=== PATIENT | female | born 1975 | race Caucasian/White ===

== ENCOUNTER 2017-03-11 19:00 | Inpatient (IN) | payer OTHER ==
--- NOTE | ~2017-03-11 | PA ---
Unit #: [id number] #: [id number] Patient: TREE LAINEZ [id number] [facility] [address] [place] [address] [id number] I MR#: [id number] NAME: TREE LAINEZ. ROOM: P178 Age: 41 Sex: F Admission Date: 03/11/2017 : 1975 Date of Assessment: Attending Physician: Sonia Robert M.D. Admitting Physician: Sonia Robert M.D. Primary Care Physician: Primary Care Physician No PSYCHIATRIC ASSESSMENT IDENTIFYING DATA Ms. Lainez is a 41-year-old white female, who is a resident of [place], [place], and was self-referred to the hospital on voluntary basis. CHIEF COMPLAINT "I've been abusing a gram of IV heroin a day for the past year." HISTORY OF PRESENT ILLNESS Ms. Lainez is a 41-year-old white female, who was brought to the hospital stating that she has been abusing heroin IV 1 g a day for the past year and reports the last use of heroin was this morning. Reports withdrawal symptoms as well as increasing depression, anxiety, feelings of hopelessness and helplessness, psychomotor retardation, inability to function and take care of herself and has had significant consequences because of her addiction and reports suicidal ideation with plan to cut her wrist or crash her car, was seen to be a significant threat to herself as she reports that she has attempted suicide last year by cutting her wrist as well and has history of previous overdose suicide attempt in 2012 and as such, recommendation for inpatient level of care for safety and stabilization was made and the patient was transferred to us. SUBSTANCE ABUSE HISTORY The patient has extensive history of substance abuse and dependence as she has experimented and abused alcohol, cannabis, cocaine, acid, opioids, and amphetamines and currently opioids appear to be her drug of choice along with methamphetamine as she reports that she has been using a gram of IV heroin a day every day and has also been using IV methamphetamine for every few months and her last use of IV heroin was on the day of coming to the hospital, and last use of methamphetamine intravenous was yesterday though she has not used any drugs for a long period of time. PAST PSYCHIATRIC HISTORY The patient reports history of inpatient chemical dependency treatment at [facility] in 2016, and currently, she is not active in any treatment program, is not seeing a psychiatrist, and is not taking psychotropic medications. PAST MEDICAL HISTORY Hepatitis C, hypertension. ALLERGIES No known medication allergies. Unit #: [id number] #: [id number] Patient: TREE LAINEZ PERSONAL AND SOCIAL HISTORY A 41-year-old white female, who reports that she is single, unemployed, and homeless and has poor social support system. MENTAL STATUS EXAMINATION Middle-aged white female, who was casually dressed with fair personal hygiene, appears to be in no acute distress or discomfort. She was awake and alert on interaction with intact orientation. Her mood was anxious and depressed with a congruent affect. Her speech was slow and restricted in content. Her thought processes were disorganized with some looseness of associations and suicidal ideations. Her insight and judgment remain significantly impaired. DIAGNOSTIC IMPRESSION Psychiatric: Major depressive disorder, recurrent, moderate, without psychotic features; opioid dependence, moderate and acute withdrawals; methamphetamine dependence, moderate. Medical: Hepatitis C and hypertension. Stressors: Moderate psychosocial stressors. TREATMENT PLAN 1. The patient has presented with history of mood disorder and substance abuse and has been decompensating and will need inpatient hospitalization for detoxification, safety, and stabilization. We will start her back on her home medications, and detox protocol will be initiated as well. 2. Supportive therapy was provided to the patient. 3. Safe, structured, and nourishing environment will be provided. ESTIMATED LENGTH OF STAY 5 to 7 days. ABILITY TO HELP SELF Limited. WILLINGNESS TO HELP SELF The patient appears to be willing to help self. STRENGTHS 1. Communicative. 2. Cooperative. PROBLEMS 1. Chronic dysphoric symptoms. 2. Chronic chemical dependency. 3. Poor social support system. DISCHARGE CRITERIA This will be contingent upon the patient's ability to go through detox without having any significant withdrawal symptoms as well as her ability to stay safe to herself, particularly after discharge from the hospital. Dictated by... Yue Umanzor/mundo Unit #: [id number] #: [id number] Patient: TREE LAINEZ TD: 03/12/2017 07:39 JOB #: [id number] PSYCHIATRIC ASSESSMENT Page 1 of 1 X Sonia Robert MD PSYCHIATRIC ASSESSMENT
--- NOTE | ~2017-03-11 | PN ---
Unit #: [id number] #: [id number] Patient: TREE LAINEZ [id number] [facility] [address] [place] [address] [id number] MR#: [id number] NAME: TREE LAINEZ. ROOM: P1 Age: 41 Sex: F Admission Date: 03/11/2017 : 1975 Attending Physician: Sonia Robert M.D. Admitting Physician: Sonia Robert M.D. Primary Care Physician: Primary Care Physician Kenna RUSSO PROGRESS NOTES DATE 03/13/2017 DISCUSSION Ms. Lainez is a 41-year-old white female with substance abuse and mood disorder who was seen today and chart was reviewed and case was discussed with the staff. She has been anxious, withdrawn and rather seclusive to herself. Meanwhile, she has been cooperative with treatment recommendations and has been taking medications and tolerating them fairly well with no reported side effects. MENTAL STATUS EXAMINATION Middle-aged white female who was casually dressed with fair personal hygiene and appears to be in no acute distress or discomfort. She was awake and alert on interaction with intact orientation. Her mood was anxious with congruent affect. She denies any suicidal or homicidal ideation. Her insight and judgement remains slightly impaired. TREATMENT PLAN 1. Will continue on current medications and treatment protocol. Will monitor response to the medications and make further adjustments as needed. 2. Will continue to follow up. Dictated by... Sonia Robert M.D. IAA/jaz TD: 03/13/2017 20:41 JOB #: [id number] Unit #: [id number] #: [id number] Patient: TREE LAINEZ ALFONZOMARJORIE PROGRESS NOTES Page 1 of 1 X Sonia Robert MD PROGRESS NOTE
--- NOTE | ~2017-03-11 | PN ---
Unit #: [id number] #: [id number] Patient: TREE LAINEZ [id number] [facility] [address] [place] [address] [id number] MR#: [id number] NAME: TREE LAINEZ. ROOM: P173 Age: 41 Sex: F Admission Date: 03/11/2017 : 1975 Attending Physician: Sonia Robert M.D. Admitting Physician: Sonia Robert M.D. Primary Care Physician: Primary Care Physician Kenna RUSSO PROGRESS NOTES DATE March 15, 2017 DISCUSSION Ms. Lainez is a 41-year-old white female, who was seen today and chart was reviewed and the case was discussed with the staff. She has been anxious, withdrawn, and rather seclusive to herself. Meanwhile, she has been cooperative with the treatment recommendations and she has been taking the medications and tolerating them fairly well with no reported side effects. MENTAL STATUS EXAMINATION Young white female, who was casually dressed with fair personal hygiene and appears to be in no acute distress or discomfort. The patient was awake and alert with intact orientation. Her mood was anxious with a congruent affect. The patient denies any suicidal or homicidal ideations. Her insight and judgment remain slightly impaired. TREATMENT PLAN 1. We will continue her on her current treatment protocol, and will monitor her response to the medications, and make further adjustments as needed. 2. We will continue to followup. Dictated by... Yue Umanzor/jocelyne TD: 03/16/2017 06:56 JOB #: [id number] Unit #: [id number] #: [id number] Patient: TREE LAINEZMARJORIE PROGRESS NOTES Page 1 of 1 X Sonia Robert MD PROGRESS NOTE
--- NOTE | ~2017-03-11 | PN ---
Unit #: [id number] #: [id number] Patient: TREE VALDEZ [id number] [facility] [address] [place] [address] [id number] I MR#: [id number] NAME: TREE VALDEZ. ROOM: P173 Age: 41 Sex: F Admission Date: 03/11/2017 : 1975 Attending Physician: Sonia Robert M.D. Admitting Physician: Sonia Robert M.D. Primary Care Physician: Primary Care Physician Kenna ARTEAGA NOTES DATE OF SERVICE: 03/16/2017 SUBJECTIVE Ms. Briscoe is a 41-year-old white female who was seen today and chart was reviewed, and case was discussed with the staff. She has been doing fairly well and appears to be coming out of the detox without any complications. She has been having depression and anxiety. She has been taking the medications and tolerating them fairly well with no reported side effects. MENTAL STATUS EXAMINATION Young white female who was casually dressed with fair personal hygiene, appears to be in no acute distress or discomfort. She was awake and alert on interaction with intact orientation. Her mood was anxious with a congruent affect. She denies any suicidal or homicidal ideation. Her insight and judgment remain slightly impaired. TREATMENT PLAN 1. We will continue on her current medications and treatment protocol. We will monitor her response to the medications and make further adjustments as needed. 2. We will continue to follow up. Dictated by... Yue Umanzor/mundo TD: 03/17/2017 23:26 JOB #: [id number] RAFAELA PROGRESS NOTES Page 1 of 1 X Sonia Robert MD PROGRESS NOTE
--- NOTE | ~2017-03-11 | PN ---
Unit #: [id number] #: [id number] Patient: TREE LAINEZ [id number] [facility] [address] [place] [address] [id number] I MR#: [id number] NAME: TREE LAINEZ. ROOM: P173 Age: 41 Sex: F Admission Date: 03/11/2017 : 1975 Attending Physician: Sonia Robert M.D. Admitting Physician: Sonia Robert M.D. Primary Care Physician: Primary Care Physician Kenna ARTEAGA NOTES DATE OF SERVICE: 03/14/2017 SUBJECTIVE Ms. Lainez is a 41-year-old white female who was seen today and chart was reviewed, and case was discussed with the staff. She has been anxious, withdrawn, and reports to have some detox symptoms. Meanwhile, she has been compliant with treatment recommendations and has been taking medications and tolerating them fairly well with no reported side effects. MENTAL STATUS EXAMINATION Young white female who was casually dressed with a fair personal hygiene, appears to be in no acute distress or discomfort. She was awake and alert with intact orientation. Her mood was anxious with a congruent affect. She denies any suicidal or homicidal ideation. Her insight and judgment remain slightly impaired. TREATMENT PLAN 1. We will continue her on her current medications and treatment protocol. We will monitor response and make further adjustments as needed. 2. We will continue to follow up. Dictated by... Yue Umanzor/mundo TD: 03/16/2017 00:02 JOB #: [id number] RAFAELA ARTEAGA NOTES Page 1 of 1 X Sonia Robert MD PROGRESS NOTE
--- NOTE | ~2017-03-11 | HP ---
Unit #: [id number] #: [id number] Patient: [facility]AT[facility] VALDEZ [id number] [facility] [address] [place] [address] [id number] I MR#: [id number] NAME: KATIE VALDEZ. ROOM: [facility] Age: 41 Sex: F Admission Date: 03/11/2017 : 1975 Attending Physician: Sonia Robert M.D. Admitting Physician: Sonia Robert M.D. Primary Care Physician: Primary Care Physician No HISTORY AND PHYSICAL HISTORY OF PRESENT ILLNESS Katie is a 41 year old admitted to [facility] because of her continued drug use. She shoots heroin. PAST MEDICAL HISTORY 1. Long history of opioid abuse to include IV heroin. 2. Hepatitis C. PAST SURGICAL HISTORY Cholecystectomy. ALLERGIES Sulfa. SOCIAL HISTORY Smokes 1 pack per day. Drinks alcohol rarely. Admits to a long history of opioid abuse to include IV heroin. FAMILY HISTORY Medically noncontributory. REVIEW OF SYSTEMS CONSTITUTIONAL: No fever or chills. HEENT: Denies any sore throat, ear pain or runny nose. CARDIOVASCULAR: Denies chest pain, irregular heart rhythm or palpitations. CHEST: Denies shortness of breath or cough. No hemoptysis. GASTROINTESTINAL: Denies nausea, vomiting, diarrhea or chronic constipation. ENDOCRINE: Denies history of increased thirst or urination. No recent significant weight loss or gain. GENITOURINARY: Denies dysuria, frequency, or hematuria. SKIN: Denies any rashes. HEMATOLOGIC: Denies history of increased bleeding or bruising. MUSCULOSKELETAL: Denies any hot, swollen joints. No generalized muscle pain. NEUROLOGIC: Denies problems with vision or speech. No frequent, severe headaches. No numbness, tingling or weakness in any extremities. Denies loss of bladder or bowel control. CURRENT MEDICATIONS 1. Detox protocol. 2. Celexa 20 mg daily. Unit #: [id number] #: [id number] Patient: KATIE VALDEZ PHYSICAL EXAMINATION GENERAL: Alert, small, no apparent distress. VITAL SIGNS: Blood pressure 130/84, heart rate 94, respirations 16, temperature 98.6. WEIGHT: 110. HEIGHT: 5 feet 2 inches. SKIN: Warm and dry without rash or lesion. HEENT: Normocephalic. TMs not viewed. Oral and nasal passages clear. Conjunctivae clear. PERRLA. EOMs intact. NECK: Supple without lymphadenopathy or thyromegaly. HEART: Regular rate and rhythm without murmur. LUNGS: Clear. ABDOMEN: Soft, nontender. : Not done. EXTREMITIES: No evidence of cyanosis, clubbing or edema. Moves all without focal deficit. NEUROLOGICAL: Grossly within normal limits. Cranial Nerves: II: Visual cunningham are intact. III, IV AND : Extraocular movements are intact. Pupils are equal, round and reactive to light. V: Facial sensation is grossly normal. VII: Facial movements and expression are normal. VIII: Auditory acuity grossly intact. IX, X: Uvula is midline. Phonation is normal. XI: Patient shrugs shoulders and turns head normally. XII: Tongue protrudes in the midline. Sensory and Motor Function: Sensory and motor sensation is grossly normal. Motor: moves all extremities well. Coordination: Gait is normal. Deep Tendon Reflexes: Intact. IMPRESSION Psychiatric admission. RECOMMENDATIONS PSYCHIATRIC: Per psychiatrist. MEDICAL: See no contraindications to participate in facility's activities. MEDICAL PROGNOSIS Good. MEDICAL CONDITION Stable. Dictated by... Aleena Cardozo P.A.-C. for Yue Bowles/jaz TD: 03/12/2017 16:30 JOB #: [id number] Unit #: [id number] #: [id number] Patient: KATIE VALDEZ HISTORY AND PHYSICAL Page 1 of 1 X Aleena Cardozo HISTORY AND PHYSICAL
--- NOTE | ~2017-03-11 | DS ---
Unit #: [id number] #: [id number] Patient: TREE VALDEZ [id number] [facility] [address] [place] [address] [id number] MR#: [id number] NAME: TREE VALDEZ. ROOM: P173 Age: 41 Sex: F Admission Date: 03/11/2017 : 1975 Discharge Date: 03/17/2017 Attending Physician: Sonia Robert M.D. Primary Care Physician: Primary Care Physician No DISCHARGE SUMMARY IDENTIFYING DATA Ms. Briscoe is a 41-year-old, , white female who is a resident of [place], [place] and was self-referred to the hospital on a voluntary basis. DISCHARGE DIAGNOSES Psychiatric: Major depressive disorder, recurrent, moderate, without psychotic features; opioid dependence, moderate and acute withdrawal; methamphetamine dependence, moderate. Medical: Hepatitis C and hypertension. Stressors: Moderate psychosocial stressors. HISTORY OF PRESENT ILLNESS Please see initial psychiatric evaluation for details. PAST PSYCHIATRIC HISTORY Please see initial psychiatric evaluation for details. PAST MEDICAL HISTORY Please see initial psychiatric evaluation for details. HOSPITAL COURSE The patient [facility] and was oriented to the hospital environment. Routine p.r.n. medications were initiated. She was started on the detox protocol for opioids and Celexa 20 mg was also initiated as an antidepressant and she was closely monitored. She was taking the medications regularly and was tolerating them fairly well and was able to come out of the detox without any complications and was willing to continue treatment on an outpatient basis and as such, it was decided that she will be discharged home and will continue treatment on an outpatient basis. DISCHARGE MEDICATIONS Celexa 20 mg a day for depression. DISCHARGE CONDITION Stable. PROGNOSIS Fair. Dictated by... Unit #: [id number] #: [id number] Patient: TREE VALDEZ Sonia Robert M.D. IAA/modl TD: 03/17/2017 21:56 JOB #: [id number] DISCHARGE SUMMARY Page 1 of 1 X Sonia Robert MD X DISCHARGE SUMMARY
--- NOTE | ~2017-03-11 | TN ---
Unit #: [id number] #: [id number] Patient: TREE LAINEZ [id number] [facility] [address] [place] [address] [id number] I MR#: [id number] NAME: TREE LAINEZ. ROOM: P173 Age: 41 Sex: F Admission Date: 03/11/2017 : 1975 Discharge Date: 03/17/2017 Attending Physician: Sonia Robert M.D. Primary Care Physician: Primary Care Physician No LOC TRANSFER NOTE DATE OF SERVICE: 03/18/2017 HISTORY OF PRESENT ILLNESS Ms. Lainez is a 41-year-old white female who was stepped down to the outpatient treatment program from the adult inpatient chemical dependency unit, where she was hospitalized under my care from 03/11/2017 to 03/17/2017 and was diagnosed and treated for opioid dependence and was medically detoxed and stepped down to the outpatient treatment program. She was seen to be not doing good this morning as she was restless, anxious, and tearful stating that she got out of the hospital and she went and stayed with one of the family, who let her come in, but she was overwhelmed and had a lot of stress going on and she was constantly having cravings and having increasing anxiety and that she even went for a walk for 5 miles to fight the cravings and thoughts and she still ended up relapsing and used a half a gram of IV heroin and that she had immediately felt remorse and guilt and was feeling depressed and was tearful today and was beating herself down, however, she still remains motivated and wants to complete the treatment program. She reports that she could not get her prescription for Celexa filled after getting out of the hospital because her insurance was not figured out and she is required to call password today to get her insurance reinstated. SUBSTANCE ABUSE HISTORY The patient has a long history of substance abuse and dependence and more recently, opioids have been her drug of choice. PAST PSYCHIATRIC HISTORY The patient has had a history of inpatient and outpatient psychiatric treatment. Currently, she is on Celexa, but has not been able to get the prescription filled. PAST MEDICAL HISTORY No acute or chronic medical illnesses. ALLERGIES Bactrim. PERSONAL AND SOCIAL HISTORY A 41-year-old white female who reports that she is , single, and unemployed and has been living with family friends and has poor social support system. MENTAL STATUS EXAMINATION Unit #: [id number] #: [id number] Patient: TREE LAINEZ Young white female who was casually dressed with fair personal hygiene, appears to be in no acute distress or discomfort. She was awake and alert on interaction with intact orientation. Her mood was anxious and depressed with a congruent affect. Her speech was slow and goal directed. She denies any suicidal or homicidal ideations, and also denies any auditory or visual hallucinations. Her insight and judgment remain slightly impaired. DIAGNOSTIC IMPRESSION Psychiatric: Opioid dependence, moderate; opioid-induced mood disorder. Medical: None. Stressors: Moderate psychosocial stressors. TREATMENT PLAN 1. The patient has presented with a history of mood disorder and substance abuse and has been decompensating. We will recommend enrolling her into the outpatient treatment program and maintaining her on her current medications and encouraging her to practice sobriety. 2. Supportive therapy was provided to the patient. ESTIMATED LENGTH OF STAY 7 to 10 days. ABILITY TO HELP SELF Limited. WILLINGNESS TO HELP SELF The patient appears to be willing to help self. STRENGTHS 1. Communicative. 2. Cooperative. PROBLEMS 1. Chronic dysphoric symptoms. 2. Poor social support system. DISCHARGE CRITERIA This will be contingent upon the patient's ability to show resolution of depression and anxiety as well as ability to stay safe to herself, particularly after discharge from the hospital. Dictated by... Yue Umanzor/mundo TD: 03/18/2017 23:45 JOB #: [id number] Unit #: [id number] #: [id number] Patient: TREE LAINEZ LOC TRANSFER NOTE Page 1 of 1 X Sonia Robert MD X LOC TRANSFER NOTE
[~2017-03-11 19:00] MED LIST: CIPROFLOXACIN500 M1 PO; COLCRYS0.6 M2 PO; KEFLEX500 M1 PO; KEFLEX500 M2 PO; NO MEDICATIONS; TRAMADOL HCL50 M2 PO; TYLENOL #3 PO; VOLTAREN75 MG PO; ZOFRAN ODT4 MG PO
[2017-03-12 09:37] LABS: BASOPHIL# 0.1 X10e3 (0-0.3); BASOPHIL% 0.6 % (0-2.5); EOSINOPHIL# 0.1 X10e3 (0-0.7); EOSINOPHIL% 1.5 % (0.0-7.0); HEMATOCRIT 43.9 % (35.0-45.0); HEMOGLOBIN 14.4 gm/dL (12.0-16.0); LYMPHOCYTE# 4.1 X10e3 (1.0-3.5); LYMPHOCYTE% 48.3 % (17.0-45.0); MEAN CELL VOLUME 91.9 FL (83-96); MEAN CORPUSCULAR HGB CONC 32.7 g/dL (30-36); MONOCYTE# 0.7 X10e3 (0-1.0); MONOCYTE% 8.1 % (3.0-12.0); NEUTROPHIL# 3.5 X10e3 (1.5-7.1); NEUTROPHIL% 41.5 % (40-75); PLATELET COUNT 271 X10e3 (140-420); RED BLOOD COUNT 4.78 X10e (3.90-5.30); RED CELL DISTRIBUTION WIDTH 13.5 % (11.0-15.5); WHITE BLOOD COUNT 8.5 X10e3 (4.0-10.5)
[2017-03-12 09:48] LABS: DIFF IND NO
[2017-03-12 10:12] LABS: URINE APPEARANCE CLEAR; URINE BILIRUBIN NEG (NEG); URINE BLOOD NEG (NEG); URINE COLOR YELLOW; URINE GLUCOSE NEG (NEG); URINE KETONE NEG (NEG); URINE LEUKOCYTE ESTERASE TRACE (NEG); URINE NITRATE NEG (NEG); URINE PH 6.5 (5-8); URINE PROTEIN NEG (NEG); URINE SPECIFIC GRAVITY 1.005 (1.003-1.035); URINE UROBILINOGEN 0.2 MG/DL (NEG)
[2017-03-12 10:15] LABS: URBCS1 AUWI 0-2 /[HPF] (0-2); URINE BACTERIA AUWI NEG (NEGATIVE)
[2017-03-12 10:40] LABS: ALBUMIN SERUM 4.1 g/dL (3.5-5.0); BILIRUBIN,TOTAL 1.7 mg/dL (0.2-2.0); BUN/CREATININE RATIO 12.5; CALCIUM SERUM 9.2 mg/dL (8.4-10.2); CREATININE SERUM 0.8 mg/dL (0.6-1.4); GLOM FILT RATE Estimated 91.7 mL/min (>60); POTASSIUM 4.7 mmol/L (3.5-5.1); PROTEIN TOTAL SERUM 7.2 g/dL (6.0-8.3)
[2017-03-12 11:50] LABS: URINE SQUAMOUS EPITHELIAL CELL FEW /[HPF]
[2017-03-12 11:56] LABS: AMPHETAMINE POS (NEG); BARBITURATES NEG (NEG); BENZODIAZEPINES NEG (NEG); COCAINE NEG (NEG); MARIJUANA POS (NEG); OPIATES NEG (NEG); TRICYCLIC ANTIDEPRESSANTS NEG (NEG); U METHADONE NEG (NEG)
== END 2017-03-17 09:10 | DRG 885 ==
LOC: P1E 20:17
PROVIDERS: Psychiatry & Neurology Psychiatry
PROC: HZ2ZZZZ Detoxification Services for Substance Abuse Treatment (ICD-10-PCS; principal; 2017-03-11)
DX: F33.1 Major depressive disorder, recurrent, moderate (principal); F15.20 Other stimulant dependence, uncomplicated; R45.851 Suicidal ideations; F11.23 Opioid dependence with withdrawal; I10 Essential (primary) hypertension; B19.20 Unspecified viral hepatitis C without hepatic coma; Z59.0 Homelessness; Z90.49 Acquired absence of other specified parts of digestive tract; F17.210 Nicotine dependence, cigarettes, uncomplicated
CPT/HCPCS: 80053; 80307; 81003; 84703; 85025; 86592